=== PATIENT | male | born 1995 | race Caucasian/White ===

== ENCOUNTER 2022-10-25 14:23 | Emergency (ER) | payer OTHER ==
[2022-10-25] MEDS ORDERED: Rabies Immune Globulin PF 150 Units/ML 2 ML SDV IM ONE (14:53)
[2022-10-25] MEDS ORDERED: Rabies Vaccine (Avian) 2.5 Unit Inj Kit IM ONE (14:53)
[2022-10-25] MEDS: Rabies Immune Globulin/PF (HyperRAB) 300 UNIT/ML 5 ML SDV IM ONE ×2 (15:26→16:18)
== END 2022-10-25 16:12 | disposition home or self-care (01) ==
LOC: JD.ED 14:23
DX: Z29.14 Encounter for prophylactic rabies immune globulin (principal)
CPT/HCPCS: 90375; 90471; 90675; 96372; 99283-25